=== PATIENT | female | born 1980 | race American Indian/Alaskan Native ===

== ENCOUNTER 2016-12-27 04:54 | Emergency (ER) | payer MEDICAID ==
[2016-12-27 04:54] VITALS: BMI 30.1
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
[2016-12-27] MEDS ORDERED: TDAP Vaccine 0.5 mL Syr IM ONE (05:20)
[2016-12-27 05:24] VITALS: BP 140/88; PULSE 82; RESP 16; TEMP 98.2; O2SAT 100
== END 2016-12-27 05:35 | disposition home or self-care (01) ==
LOC: ED 04:54
DX: S61.511A Laceration without foreign body of right wrist, initial encounter (principal); W45.8XXA Other foreign body or object entering through skin, initial encounter; I10 Essential (primary) hypertension; F17.210 Nicotine dependence, cigarettes, uncomplicated; Z21 Asymptomatic human immunodeficiency virus [HIV] infection status; Z23 Encounter for immunization

== ENCOUNTER 2017-01-01 00:25 | Inpatient (IN) | payer MEDICAID ==
[2017-01-01 00:26] VITALS: BMI 30.1
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
[2017-01-01 01:24] LABS: BASO # 0.03 K/mm3 (0.0-2.0); BASO % 0.5 % (0.0-3.0); EOS # 0.3 (0.0-0.7); GRAN # 2.28 (1.4-6.5); GRAN % 41.5 % (50.0-68.0); HEMATOCRIT 34.5 % (36.0-48.0); LYMPH # 2.3 (1.2-3.4); LYMPH % 41.6 % (22.0-35.0); MEAN CELL VOLUME 78.1 fl (80.0-105.0); MEAN CORPUSCULAR HEMOGLOBIN 25.6 pg (25.0-35.0); MEAN CORPUSCULAR HGB CONC 32.8 g/dl (31.0-37.0); MEAN PLATELET VOLUME 10.1 fl (7.0-11.0); MONO # 0.6 (0.1-0.6); MONO % 10.4 % (1.0-6.0); RED CELL DISTRIBUTION WIDTH 14.6 % (11.5-14.5); WHITE BLOOD COUNT 5.5 10^3/ul (4.5-11.0)
[2017-01-01 01:37] LABS: URINE BILIRUBIN NEGATIVE (NEGATIVE); URINE BLOOD NEGATIVE (NEGATIVE); URINE GLUCOSE (UA) NEGATIVE (NEGATIVE); URINE KETONE NEGATIVE (NEGATIVE); URINE LEUKOCYTE ESTERASE NEGATIVE Leu/uL (NEGATIVE); URINE PROTEIN NEGATIVE mg/dL (<30 mg/dL); URINE UROBILINOGEN 0.2 E.U./dL (<1 E.U./dL)
[2017-01-01 01:39] LABS: ALB/GLOB RATIO 0.9 (1.1-1.8); ALKALINE PHOSPHATASE 80 U/L (38-126); ALT/SGPT 40 U/L (7-56); AST/SGOT 44 U/L (14-36); BILIRUBIN,TOTAL 0.4 mg/dL (0.2-1.3); BLOOD UREA NITROGEN 8 mg/dL (7-21); CALCIUM 9.9 mg/dL (8.4-10.5); CARBON DIOXIDE 26 mmol/L (21-33); CHLORIDE 101 mmol/L (98-107); GFR AFRICAN-AMERICAN > 60; GLUCOSE,RANDOM 114 mg/dL (70-110); POTASSIUM 3.9 mmol/L (3.6-5.0); SODIUM 137 mmol/L (132-148); TOTAL PROTEIN 8.9 g/dL (5.8-8.3)
[2017-01-01 01:40] LABS: URINE APPEARANCE CLEAR (CLEAR); URINE COLOR YELLOW (YELLOW)
[2017-01-01 02:11] VITALS: O2SAT 100
[2017-01-01] MEDS ORDERED: Magnesium Hydroxide Susp 30 ml UD PO PRN (05:50)
[2017-01-01] MEDS ORDERED: Alum-Mag Hydrox-Simethicone Susp (30 mL) PO PRN (05:50)
--- NOTE | 2017-01-01 06:16 | PCM.BM ---
<Kunal Saldaña - Last Filed: 01/01/17 06:14> Treatment Plan Problems - Problems identified on initial assessmt self-harm Date Initiated: 01/01/17 Time Initiated: 06:00 Assessment reference: NA Status: Active Priority: 1 suicidal ideation Date Initiated: 01/01/17 Time Initiated: 06:00 Assessment reference: NA Status: Active Priority: 2 depression Date Initiated: 01/01/17 Time Initiated: 06:00 Assessment reference: NA Status: Active Priority: 3 Treatment assets and liabiliti Patient Assests: self-reliant, ADL independent, negotiates basic needs, cognitively intact Patient Liabilities: financial problems, substance abuse, legal issue - Milieu Protocol Maintain good personal hygiene: daily Encourage regular showers, daily Remind patient to perform daily oral care, daily Assist patient to perform ADL's Conduct patient checks and document Observation sheet: Q15 minutes Maintain personal safety: every shift Educate patient to report safety concerns to staff, every shift Monitor environment for contraband/sharps Medication safety: Monitor for expected outcome, potential side effects: every shift, Assess barriers to learning: every shift, Assess readiness for medication education: every shift Discharge/Continuing Care - Education Needs Education Needs: Patient Medication, Patient Diagnosis/Disease Process, Patient Coping Skills, Patient Community resources, Patient Health Practices/Safety - Discharge Discharge Criteria: Tolerates medication w/o severe side effects, Free of Suicidal thoughts <Hilary Vega - Last Filed: 01/01/17 11:07> Family Contact Family involvement: Family/SO is involved Family contact: Patient agrees to contact Family contact name: Geovany Naik() Family contacted how many times per week?: 2 - Goals for Treatment Patient goals for treatment: "To get back on my meds and have an outpatient psychiatist." <Nguyen Lyn - Last Filed: 01/01/17 13:03> - Diagnosis (1) Schizoaffective disorder Status: Acute Interventions: 01/01/17 13:00 Psychoeducation/psychotherapy Psychopharmacology/adjustment of medications as needed/ monitoring possible side effects Evaluate pt on daily basis Compliance with medications and follow up appointments Long acting medication if pt is noncompliant with pill form Suicide and homicide risk assessment and prevention, coping strategies, safety plan Relapse prevention Reduction of symptoms Improve functional status Possible assertive community treatment Cognitive behavioral therapy Family involvement Possible social skill training as outpatient (2) Opiate dependence Status: Acute Interventions: 01/01/17 13:00 Monitoring withdrawal symptoms Medical detoxification Pharmacotherapy for alcohol/benzos/opioid dependence Maintaining sobriety Relapse prevention Possible rehabilitation Motivational interviewing 12-step programs: AA meetings (3) HIV (human immunodeficiency virus infection) Status: Chronic Interventions: 01/01/17 13:02 Pt will be seen by medical team as needed pt was noncompliant with meds, will call ID team Medications will be confirmed and resumed Additional consultation by specialists as needed Lab work as needed (CBC, CMP, TSH, free T4, UA, Urine test for females as needed) CXR as needed EKG Physical therapy valuation as needed
--- NOTE | 2017-01-01 10:23 | RAD ---
HISTORY: PES eval COMPARISON: 11/04/2015 FINDINGS: LUNGS: No active pulmonary disease. PLEURA: No significant pleural effusion identified, no pneumothorax apparent. CARDIOVASCULAR: Normal. OSSEOUS STRUCTURES: No significant abnormalities. VISUALIZED UPPER ABDOMEN: Normal. OTHER FINDINGS: None. IMPRESSION: No active disease.
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
[2017-01-01] MEDS: Divalproex 250 mg DR (BID formulation) PO SCH (15:44)
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
--- NOTE | 2017-01-01 23:19 | CARD ---
APPROVED REPORT EKG Measurement Heart [id number] <Conclusion> Normal sinus rhythm Possible Left atrial enlargement Septal infarct, age undetermined Abnormal ECG
[2017-01-02] MEDS: Divalproex 250 mg DR (BID formulation) PO SCH ×2 (09:21→16:06)
[2017-01-02] MEDS: Multivitamin With Minerals Tab PO SCH (09:21)
--- NOTE | 2017-01-02 09:22 | PCM.PYCHPN ---
Psychiatric Progress Note - Psychiatric Progress Note Patient seen today, length of contact: 25 min Patient Chief Complaint: "edgy" Problems Identified/Issues Discussed: I reviewed assessment and recent notes. I met with patient at bedside. Patient is calm, cooperative and well-oriented to month, year and circumstances. Reports that she feels "edgy". Complains of aches and pains related to opiate withdrawal. Patient states that she was able to sleep a little last night. She is coherent and denies any suicidal thoughts. Patient denies any new concerns and has been tolerating her medications thus far. Staff notes indicate that patient has been fairly pleasant and cooperative. She is becoming more engaged. Visible on the unit interacting with patients. There were no behavioral issues overnight Diagnostic Results: as per history of schizoaffective disorder Opioid use disorder Medication Change: No Medical Record Reviewed: Yes Mental Status Examination - Cognitive Function Orientation: Person, Place, Situation Memory: Intact Attention: WNL - Mood Mood: Other ("edgy") - Affect Affect: Other (irritable) - Speech Speech: Appropriate - Formal Thought Process Formal Thought Process: No Impairment - Suicidal Ideation Suicidal Ideation: No - Homicidal Ideation Homicidal Ideation: No Goal/Treatment Plan - Goal/Treatment Plan Progress Toward Problem(s) and Goals/Treatment Plan: * c/w current tx and plan * No new weekend labs thus far * Vitals reviewed and noted below: Selected Entries 01/01/17 01/01/17 01/01/17 05:29 06:00 06:55 Temperature 98.5 F 98.2 F Pulse Rate 91 H 71 Respiratory 18 18 18 Rate Blood Pressure 135/82 135/93 H O2 Sat by Pulse 100 Oximetry Oxygen Delivery Room Air Method 01/01/17 16:00 Temperature Pulse Rate 86 Respiratory Rate Blood Pressure 121/81 O2 Sat by Pulse Oximetry Oxygen Delivery Method
[2017-01-02] MEDS: Emtricitabine-Tenofovir 200 mg-300 mg Tab PO SCH (09:24)
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
[2017-01-02] MEDS: Betamethasone Dip 0.05% Oint 45gm TOP SCH (16:02)
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
[2017-01-03 07:11] VITALS: RESP 16
[2017-01-03] MEDS: Multivitamin With Minerals Tab PO SCH (09:09)
[2017-01-03] MEDS: Betamethasone Dip 0.05% Oint 45gm TOP SCH ×2 (09:09→16:52)
[2017-01-03] MEDS: Divalproex 250 mg DR (BID formulation) PO SCH ×2 (09:09→16:41)
--- NOTE | 2017-01-03 09:26 | PCM.PYCHPN ---
Psychiatric Progress Note - Psychiatric Progress Note Patient seen today, length of contact: 25 min Patient Chief Complaint: "all right" Problems Identified/Issues Discussed: I reviewed recent notes and met with patient at bedside. Patient is calm, cooperative and well-oriented to month, year and circumstances. Reports that she feels "all right" today. Reports that she slept well last night. She is coherent and denies any suicidal thoughts. Patient denies any new concerns and has been tolerating her medications thus far. Diagnostic Results: as per history of schizoaffective disorder Opioid use disorder Medication Change: No Medical Record Reviewed: Yes Mental Status Examination - Cognitive Function Orientation: Person, Place, Situation Memory: Intact Attention: WNL - Mood Mood: Other ( "all right") - Affect Affect: Other (irritable) - Speech Speech: Appropriate - Formal Thought Process Formal Thought Process: No Impairment - Suicidal Ideation Suicidal Ideation: No - Homicidal Ideation Homicidal Ideation: No Goal/Treatment Plan - Goal/Treatment Plan Progress Toward Problem(s) and Goals/Treatment Plan: * c/w current tx and plan * Appreciate f/u by Dr. Ruiz on 01/02/17~restarted HAART. Check HIV Viral Load and CD4 count * Appreciate f/u by Dr. Rosenbaum on 01/02/17 * No new weekend labs thus far * Vitals reviewed and noted below: Selected Entries 01/01/17 01/01/17 01/02/17 06:55 16:00 04:00 Temperature 98.2 F Pulse Rate 71 86 75 Respiratory 18 Rate Blood Pressure 135/93 H 121/81 108/61 01/02/17 06:36 Temperature 98.2 F Pulse Rate 71 Respiratory 18 Rate Blood Pressure 109/70
[2017-01-03] MEDS: Emtricitabine-Tenofovir 200 mg-300 mg Tab PO SCH (10:07)
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
[2017-01-04 07:26] VITALS: BP 120/72; PULSE 66; TEMP 98.5
[2017-01-04] MEDS: Betamethasone Dip 0.05% Oint 45gm TOP SCH (10:07)
[2017-01-04] MEDS: Multivitamin With Minerals Tab PO SCH (10:07)
[2017-01-04] MEDS: Divalproex 250 mg DR (BID formulation) PO SCH (10:07)
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
== END 2017-01-04 15:44 | disposition home or self-care (01) | DRG 430 ==
LOC: ED 00:25 → ERH 05:01 → PSYC 05:34
PROVIDERS: ADMIT Psychiatry & Neurology Psychiatry; ATTEND Psychiatry & Neurology Psychiatry
DX: F25.9 Schizoaffective disorder, unspecified (principal); F11.23 Opioid dependence with withdrawal; B19.20 Unspecified viral hepatitis C without hepatic coma; Z21 Asymptomatic human immunodeficiency virus [HIV] infection status; F17.210 Nicotine dependence, cigarettes, uncomplicated; G40.909 Epilepsy, unspecified, not intractable, without status epilepticus; R45.851 Suicidal ideations; D50.9 Iron deficiency anemia, unspecified; I10 Essential (primary) hypertension; L30.9 Dermatitis, unspecified; G89.29 Other chronic pain; F31.9 Bipolar disorder, unspecified; J45.909 Unspecified asthma, uncomplicated; Z91.14 Patient's other noncompliance with medication regimen

== ENCOUNTER 2017-04-21 02:48 | Emergency (ER) | payer MEDICAID ==
[2017-04-21 02:57] VITALS: BMI 23.5
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
--- NOTE | 2017-04-21 06:04 | CT ---
EXAM: CT Head Without Intravenous Contrast CLINICAL HISTORY: 36 years old, female; Signs and symptoms; Altered mental status/memory loss; Additional info: Injury TECHNIQUE: Axial computed tomography images of the head/brain without intravenous contrast. All CT scans at this facility use one or more dose reduction techniques, viz.: automated exposure control; ma/kV adjustment per patient size (including targeted exams where dose is matched to indication; i.e. head); or iterative reconstruction technique. 352 images are submitted. Coronal and sagittal reformatted images were created and reviewed. Axial reformatted images were created and reviewed. COMPARISON: No relevant prior studies available. FINDINGS: Brain: Unremarkable. No hemorrhage. No significant white matter disease. No edema. Ventricles: Cavum septum pellucidum and cavum septum vergae. Bones/joints: Unremarkable. No acute fracture. Soft tissues: Unremarkable. Sinuses: There is hyperdense material within the right maxillary sinus this could be related to inspissated secretions versus blood. Correlation with clinical data is recommended if fungal sinusitis is clinically suspected. Moderate right maxillary sinus disease. Mastoid air cells: Unremarkable. No mastoid effusion. Orbits: The globe and lens are intact. Dental: Edentulous maxilla. Partially edentulous mandible. IMPRESSION: 1. No evidence of an acute intracranial hemorrhage, midline shift or mass effect is identified. 2. There is hyperdense material within the right maxillary sinus this could be related to inspissated secretions versus blood. Correlation with clinical data is recommended if fungal sinusitis is clinically suspected.
--- NOTE | 2017-04-21 07:55 | ED PDOC ---
Physical Exam - Physical Exam Narrative Physical Exam (Text): Signed out to me at change of shift pending safe discharge for alcohol intoxication. Patient's arrived, will take patient home. Copy of CT given for primary care follow up. Vital Signs Temp Pulse Resp BP Pulse Ox 04/21/17 05:00 98.5 F 80 16 132/75 98 04/21/17 03:59 98.6 F 91 H 18 123/69 98 Medical Decision Making - RAD Interpretation Radiology Orders: 04/21/17 03:21 HEAD W/O CONTRAST [CT] Stat Disposition/Present on Arrival - Present on Arrival Any Indicators Present on Arrival: No History of DVT/PE: No History of Uncontrolled Diabetes: No Urinary Catheter: No History of Decub. Ulcer: No History Surgical Site Infection Following: None - Disposition Have Diagnosis and Disposition been Completed?: Yes Diagnosis: Alcohol intoxication, Contusion, Eyelid abrasion Disposition Time: 07:54 Patient Plan: Discharge Patient Problems: Current Active Problems Problem Status Onset Alcohol intoxication Acute Contusion Acute Eyelid abrasion Acute Condition: STABLE Discharge Instructions (ExitCare): Skin Abrasions, Contusion (DC), Alcohol Abuse and Alcoholism (DC) Additional Instructions: HEAD W/O CONTRAST Exam Date: 04/21/17 This imaging exam was performed at [facility] EXAM: CT Head Without Intravenous Contrast CLINICAL HISTORY: 36 years old, female; Signs and symptoms; Altered mental status/memory loss; Additional info: Injury TECHNIQUE: Axial computed tomography images of the head/brain without intravenous contrast. All CT scans at this facility use one or more dose reduction techniques, viz.: automated exposure control; ma/kV adjustment per patient size (including targeted exams where dose is matched to indication; i.e. head); or iterative reconstruction technique. 352 images are submitted. Coronal and sagittal reformatted images were created and reviewed. Axial reformatted images were created and reviewed. COMPARISON: No relevant prior studies available. FINDINGS: Brain: Unremarkable. No hemorrhage. No significant white matter disease. No edema. Ventricles: Cavum septum pellucidum and cavum septum vergae. Bones/joints: Unremarkable. No acute fracture. Soft tissues: Unremarkable. Sinuses: There is hyperdense material within the right maxillary sinus this could be related to inspissated secretions versus blood. Correlation with clinical data is recommended if fungal sinusitis is clinically suspected. Moderate right maxillary sinus disease. Mastoid air cells: Unremarkable. No mastoid effusion. Orbits: The globe and lens are intact. Dental: Edentulous maxilla. Partially edentulous mandible. IMPRESSION: 1. No evidence of an acute intracranial hemorrhage, midline shift or mass effect is identified. 2. There is hyperdense material within the right maxillary sinus this could be related to inspissated secretions versus blood. Correlation with clinical data is recommended if fungal sinusitis is clinically suspected. Dictated By: ANTON JEREZ Dictated Date/Time: 04/21/17603 Signed By: ANTON JEREZ MD Date Signed: [id number] Transcribed By: [email or web address] Transcribe Date/Time : 04/21/17603
[2017-04-21 08:05] VITALS: BP 121/77; PULSE 81; RESP 17; TEMP 98.1; O2SAT 99
== END 2017-04-21 08:51 | disposition home or self-care (01) ==
LOC: EDBD → ED 02:48 → MERGE 02:48 → ED 08:51
DX: F10.129 Alcohol abuse with intoxication, unspecified (principal); S00.212A Abrasion of left eyelid and periocular area, initial encounter; S00.83XA Contusion of other part of head, initial encounter; X58.XXXA Exposure to other specified factors, initial encounter; Y92.410 Unspecified street and highway as the place of occurrence of the external cause